=== PATIENT | female | born 1930 | race Caucasian/White ===

== ENCOUNTER 2019-03-30 18:11 | Inpatient (IN) | payer MEDICARE ==
[~2019-03-30] VITALS: Ht 152.4 cm; Wt 57.2 kg
[2019-03-30 18:42] LABS: BASOPHILS ABSOLUTE AUTO 0.08 K/mm3 (0.00-0.23); BASOPHILS PERCENT AUTO 1 % (0-2); EOSINOPHILS ABSOLUTE AUTO 0.57 K/mm3 (0.00-0.68); EOSINOPHILS PERCENT AUTO 7 % (0-6); Hematocrit 35.8 % (33.0-51.0); Hemoglobin 11.8 g/dL (11.5-16.0); IMMATURE GRAN ABSOLUTE AUTO 0.02 K/mm3 (0.00-0.10); IMMATURE GRAN PERCENT AUTO 0 % (0-1); LYMPHOCYTES ABSOLUTE AUTO 2.89 K/mm3 (0.84-5.20); LYMPHOCYTES PERCENT AUTO 35 % (21-46); MONOCYTES ABSOLUTE AUTO 0.63 K/mm3 (0.16-1.47); MONOCYTES PERCENT AUTO 8 % (4-13); Mean Corpuscular HGB 31.9 pg (26.0-34.0); Mean Corpuscular Volume 97 fL (80-100); Mean Platelet Volume 9.9 fL (9.1-12.4); NEUTROPHILS ABSOLUTE AUTO 4.12 K/mm3 (1.96-9.15); NEUTROPHILS PERCENT AUTO 50 % (41-73); Platelet Count 224 K/mm3 (150-400); RDW Coefficient Variation 12.7 % (11.7-14.2); RDW Standard Deviation 45.2 fL (35.1-46.3); White Blood Cell Count 8.31 K/mm3 (4.00-11.30)
[2019-03-30 19:02] LABS: Anion Gap 5 mmol/L (6-16); Blood Urea Nitrogen 20 mg/dL (8-24); Bun/Creatinine Ratio 21.8 (12.0-20.0); CO2, Blood 28 mmol/L (21-32); Calcium, Blood 8.4 mg/dL (8.5-10.1); Chloride, Blood 106 mmol/L (98-108); Creatinine, Blood 0.92 mg/dL (0.40-1.00); Glomerular Filtration Rate >60 (60-); Glucose, Blood 112 mg/dL (70-99); Potassium, Blood 3.7 mmol/L (3.5-5.5); Sodium, Blood 139 mmol/L (136-145)
[2019-03-30] MEDS ORDERED: Synthroid88 MCG PO (19:40)
--- NOTE | 2019-03-30 20:30 | NUR ---
ADMITTED TO SURGICAL FLOOR PT ARRIVED TO UNIT FROM ED VIA STRETCHER AT 2030 TODAY. PT A/O WITH VSS ON RA. DAUGHTER AT BEDSIDE AND ABLE TO ASSIST WITH HISTORY. REFUSES URINARY CATH AT THIS TIME DESPITE EDUCATION. DENIES NEED FOR PAIN MEDICATION AT THIS TIME. C/O NAUSEA. WILL MEDICATE PER EMAR. ORIENTATED TO ROOM AND DEMONSTRATED APPROPRIATE CALL LIGHT USE. CURRENTLY RESTING IN BED WITH CALL LIGHT IN HAND.
[2019-03-30] MEDS ORDERED: ASCO500 PO (22:07)
[2019-03-30] MEDS ORDERED: Vitamin D400 UNI1 PO (22:08)
[2019-03-30] MEDS ORDERED: [UNRECOGNIZED DRUG - OTHER] PO (22:10)
[2019-03-30] MEDS ORDERED: [UNRECOGNIZED DRUG - OTHER] PO (22:10)
--- NOTE | 2019-03-30 22:58 | NUR ---
DOCTOR NOTIFIED PT C/O MUSCLE CRAMPS/SPASMS. DR. BROWN NOTIFIED, NEW ORDERED FOR FLEXERIL OBTAINED.
[2019-03-31 05:56] LABS: Hematocrit 35.6 % (33.0-51.0); Hemoglobin 11.7 g/dL (11.5-16.0); Mean Corpuscular HGB 31.9 pg (26.0-34.0); Mean Corpuscular HGB Conc 32.9 g/dL (31.5-36.5); Mean Corpuscular Volume 97 fL (80-100); Mean Platelet Volume 10.5 fL (9.1-12.4); Platelet Count 228 K/mm3 (150-400); RDW Coefficient Variation 12.9 % (11.7-14.2); RDW Standard Deviation 46.2 fL (35.1-46.3); Red Blood Cell Count 3.67 M/mm3 (3.80-5.20); White Blood Cell Count 9.53 K/mm3 (4.00-11.30)
[2019-03-31 06:11] LABS: Alanine Aminotransfer (ALT/SGP 27 U/L (12-78); Albumin, Blood 3.4 g/dL (3.4-5.0); Albumin/Globulin Ratio 0.9 (0.8-1.8); Alk Phos 58 U/L (50-136); Anion Gap 4 mmol/L (6-16); Aspartate Aminotrans (AST/SGOT 30 U/L (12-37); Bilirubin, Total 0.4 mg/dL (0.1-1.0); Blood Urea Nitrogen 19 mg/dL (8-24); Bun/Creatinine Ratio 24.9 (12.0-20.0); CO2, Blood 28 mmol/L (21-32); Calcium, Blood 8.5 mg/dL (8.5-10.1); Chloride, Blood 107 mmol/L (98-108); Creatinine, Blood 0.76 mg/dL (0.40-1.00); Globulin, Blood 3.6 g/dL (2.2-4.0); Glomerular Filtration Rate >60 (60-); Glucose, Blood 125 mg/dL (70-99); Potassium, Blood 4.6 mmol/L (3.5-5.5); Sodium, Blood 139 mmol/L (136-145)
[2019-03-31 07:13] LABS: Source, Urine Catheter
[2019-03-31 07:22] LABS: Appearance, Urine Clear (Clear); Bilirubin, Urine Neg (Neg); Blood, Urine 1+ (Neg); Color, Urine Yellow (P-Yellow); Glucose Qualitative, Urine Neg (Neg); Ketones, Urine 2+ (Neg); Leukocyte Esterase, Urine Neg (Neg); Nitrite, Urine Neg (Neg); Protein, Urine Neg (Neg); Urobilinogen, Urine NORM (Normal)
[2019-03-31 07:32] LABS: Bacteria Rare /hpf; Red Blood Cells, Urine 0-2 /hpf (0-2); Squamous Epithelial Cells Few /hpf (Few); White Blood Cells, Urine 0-2 /hpf (0-5)
--- NOTE | 2019-03-31 07:38 | NUR ---
SHIFT SUMMARY PT ADMITTED FOR LEFT HIP FX DURING SHIFT. REPORTS PAIN AT TOLERABLE LEVEL, REPOSITIONED AND MEDICATED PER EMAR PRN. HAS BEEN NPO SINCE MIDNIGHT. FISHER PLACED R/T URINARY RETENTION, PATENT AND DRAINING YELLOW URINE. PLAN FOR SURGERY TODAY. PT CURRENTLY RESTING IN BED WITH CALL LIGHT IN HAND. REPORT GIVEN TO ONCOMING RN.
[2019-03-31 10:42] LABS: International Normalized Ratio 0.96; Prothrombin Time Results 10.2 Sec (9.7-11.5)
--- NOTE | 2019-03-31 11:30 | NUR ---
03/31/19 1130 [place] PATIENT ARRIVED TO OR WITH FISHER CATH IN PLACE
--- NOTE | 2019-03-31 13:01 | NUR ---
PT ARRIVED TO THE ROOM AT APPROXIMATELY 1255. PT ALERT AND ORIENTED. VSS, BP LOW NORMAL. FAMILY AT BEDSIDE FOR SUPPORT. WILL CONTINUE TO MONITOR.
--- NOTE | 2019-03-31 15:07 | NUR ---
BLEEDING DISTAL DRESSING WAS FOUND TO BE SATURATED WITH BLOOD WHEN THERAPY ATTEMPTED TO GET HER OOB. DRESSING WAS REMOVED, SLOW OOZING OBSERVED FROM INCISION SITE AT THAT TIME. PRESSURE APPLIED TO WOUND FOR APPROXIMATELY 10 MINUTES, OOZING APPEARS TO HAVE STOPPED. NEW AQUACEL DRESSING APPLIED. AWAITING CALL BACK FROM DR. BOYKIN.
--- NOTE | 2019-03-31 16:18 | NUR ---
DEBBIE WRAP APPLIED AROUND L THIGH IN ORDER TO APPLY PRESSURE TO REDUCE BLEEDING.
--- NOTE | 2019-03-31 16:31 | NUR ---
DR. MORALES NOTIFIED OF LOW BP OF 81/44. PT IS ASYMPTOMATIC AT THIS TIME. WILL RE-CHECK BP IN APPROXIMATELY [address] MORALES REQUEST. WILL CONTINUE TO MONITOR MENTATION.
--- NOTE | 2019-03-31 17:29 | NUR ---
BP HAS IMPROVED TO 101/49. PT REMAINS ASYMPTOMATIC. WILL CONTINUE TO MONITOR. IF BP CONTINUES TO DECREASE OR PT BECOMES SYMPTOMATIC DR. MORALES WILL BE NOTIFIED.
--- NOTE | 2019-03-31 18:44 | NUR ---
SHIFT SUMMARY PAIN HAS BEEN MANAGED WITH PO PAIN MEDICATION POST-OP. BP LOW POST-OP, FLUIDS STARTED PER DR. MORALES. BP IS IMPROVING; PT HAS BEEN ASYMPTOMATIC. FAMILY AT BEDSIDE FOR SUPPORT. WILL CONTINUE TO MONITOR.
--- NOTE | 2019-04-01 01:21 | NUR ---
PT WITH HYPOTENSION, MAP 61-67 FISHER OUT 200 ML SO FAR MED JEANNETTE IN COLOR.PT WAS NOTED HYPOTENSIVE POSTOP WITH IV FLUIDS CURRENTLY RUNNING AT 75 ML/HR.NO FURTHER BLEED AT SURG SITE. DEBBIE WRAP D/I TO L THIGH. PT ALERT AND HAS TAKEN 240 ML PO. SEE FLOW RECORDS FOR VS.I CALLED DR PEREZ AND RECEIVED ORDERS TO PUSH CBC UP TO 3 AM FROM 5 AM NOTIFIED LAB. ALSO, TO RUN REST OF CURRENT IV BAG IN @200 ML, THEN HANG ADDITIONAL LITER @ 200 ML/HR.PT IS SLEEPING AT THIS TIME.ADVISED DAUGHTER OF ORDERS OBTAINED. IV RATE CHANGED TO 200 ML/HR.
[2019-04-01 03:02] LABS: BASOPHILS ABSOLUTE AUTO 0.01 K/mm3 (0.00-0.23); BASOPHILS PERCENT AUTO 0 % (0-2); EOSINOPHILS PERCENT AUTO 0 % (0-6); Hemoglobin 7.5 g/dL (11.5-16.0); IMMATURE GRAN ABSOLUTE AUTO 0.03 K/mm3 (0.00-0.10); IMMATURE GRAN PERCENT AUTO 0 % (0-1); LYMPHOCYTES ABSOLUTE AUTO 1.77 K/mm3 (0.84-5.20); LYMPHOCYTES PERCENT AUTO 16 % (21-46); MONOCYTES ABSOLUTE AUTO 1.02 K/mm3 (0.16-1.47); MONOCYTES PERCENT AUTO 9 % (4-13); Mean Corpuscular HGB 31.9 pg (26.0-34.0); Mean Corpuscular HGB Conc 32.6 g/dL (31.5-36.5); Mean Corpuscular Volume 98 fL (80-100); Mean Platelet Volume 10.2 fL (9.1-12.4); NEUTROPHILS ABSOLUTE AUTO 8.23 K/mm3 (1.96-9.15); NEUTROPHILS PERCENT AUTO 74 % (41-73); Platelet Count 161 K/mm3 (150-400); RDW Coefficient Variation 13.1 % (11.7-14.2); RDW Standard Deviation 46.5 fL (35.1-46.3); Red Blood Cell Count 2.35 M/mm3 (3.80-5.20); White Blood Cell Count 11.06 K/mm3 (4.00-11.30)
--- NOTE | 2019-04-01 04:20 | NUR ---
NOTED PTS FOLLOW UP H/H.BP STABLE. NOT TACHY. ADDITIONAL 100 ML OUT PER FISHER WHICH IS NOW YELLOW IN COLOR. PT WITH NO OBVIOUS ACTIVE BLEED. PT ALERT AND ABLE TO ASSIST FOR REPOSITIONING IN BED. DENIES ANY DIZZYNESS OR PAIN. I CALLED DR Aguirre AND RECEIVED ORDERS.PT TO HAVE TX AND HOLD 2 UNITS. REPEAT CBC AT 0600. NEXT IV BAG TR@150 ML/HR.
[2019-04-01 06:13] LABS: BASOPHILS ABSOLUTE AUTO 0.02 K/mm3 (0.00-0.23); BASOPHILS PERCENT AUTO 0 % (0-2); EOSINOPHILS ABSOLUTE AUTO 0.01 K/mm3 (0.00-0.68); EOSINOPHILS PERCENT AUTO 0 % (0-6); Hematocrit 21.9 % (33.0-51.0); Hemoglobin 7.1 g/dL (11.5-16.0); IMMATURE GRAN ABSOLUTE AUTO 0.05 K/mm3 (0.00-0.10); IMMATURE GRAN PERCENT AUTO 1 % (0-1); LYMPHOCYTES ABSOLUTE AUTO 1.74 K/mm3 (0.84-5.20); LYMPHOCYTES PERCENT AUTO 18 % (21-46); MONOCYTES ABSOLUTE AUTO 1.13 K/mm3 (0.16-1.47); MONOCYTES PERCENT AUTO 11 % (4-13); Mean Corpuscular HGB 31.7 pg (26.0-34.0); Mean Corpuscular HGB Conc 32.4 g/dL (31.5-36.5); Mean Corpuscular Volume 98 fL (80-100); Mean Platelet Volume 10.1 fL (9.1-12.4); NEUTROPHILS ABSOLUTE AUTO 6.94 K/mm3 (1.96-9.15); NEUTROPHILS PERCENT AUTO 70 % (41-73); Platelet Count 145 K/mm3 (150-400); RDW Coefficient Variation 13.2 % (11.7-14.2); RDW Standard Deviation 47.1 fL (35.1-46.3); Red Blood Cell Count 2.24 M/mm3 (3.80-5.20); White Blood Cell Count 9.89 K/mm3 (4.00-11.30)
--- NOTE | 2019-04-01 07:33 | NUR ---
SUMMARY PT FOLLOW UP 6 1M LAB SLIGHTLY LOWER. DAY RN AGREES TO NOTIFY HOSPITALIST. NO OTHER ACUTE CHANGES.
[2019-04-01 13:43] LABS: Hematocrit 25.3 % (33.0-51.0); Hemoglobin 8.4 g/dL (11.5-16.0)
--- NOTE | 2019-04-01 18:21 | NUR ---
SHIFT SUMMARY PT HAS HAD MINIMAL PAIN THIS SHIFT. PT TOLERATED 1 UNIT OF PRBC WELL. BP REMAINS LOW AFTER UNIT OF BLOOD, PT IS ASYMPTOMATIC. WILL PT IS PRODUCING URINE. PT WAS ABLE TO WORK WITH THERAPY; BP DID NOT DECREASE DURING THERAPY. WILL CONTINUE TO MONITOR UNTIL REPORT TO ONCOMING RN.
--- NOTE | 2019-04-02 00:32 | NUR ---
ASSUMED CARE OF PT. PT RESTING IN BED, RESP E/U, NO DISTRESS NOTED. WILL CONT TO MONITOR AND TREAT PER ORDERS.
[2019-04-02 04:53] LABS: BASOPHILS ABSOLUTE AUTO 0.03 K/mm3 (0.00-0.23); BASOPHILS PERCENT AUTO 0 % (0-2); EOSINOPHILS ABSOLUTE AUTO 0.25 K/mm3 (0.00-0.68); EOSINOPHILS PERCENT AUTO 3 % (0-6); Hematocrit 25.2 % (33.0-51.0); Hemoglobin 8.1 g/dL (11.5-16.0); IMMATURE GRAN ABSOLUTE AUTO 0.02 K/mm3 (0.00-0.10); IMMATURE GRAN PERCENT AUTO 0 % (0-1); LYMPHOCYTES ABSOLUTE AUTO 1.77 K/mm3 (0.84-5.20); LYMPHOCYTES PERCENT AUTO 23 % (21-46); MONOCYTES ABSOLUTE AUTO 1.01 K/mm3 (0.16-1.47); MONOCYTES PERCENT AUTO 13 % (4-13); Mean Corpuscular HGB 30.7 pg (26.0-34.0); Mean Corpuscular HGB Conc 32.1 g/dL (31.5-36.5); Mean Corpuscular Volume 96 fL (80-100); Mean Platelet Volume 10.3 fL (9.1-12.4); NEUTROPHILS ABSOLUTE AUTO 4.71 K/mm3 (1.96-9.15); NEUTROPHILS PERCENT AUTO 60 % (41-73); Platelet Count 155 K/mm3 (150-400); RDW Coefficient Variation 15.9 % (11.7-14.2); RDW Standard Deviation 55.1 fL (35.1-46.3); Red Blood Cell Count 2.64 M/mm3 (3.80-5.20); White Blood Cell Count 7.79 K/mm3 (4.00-11.30)
[2019-04-02 05:06] LABS: Albumin, Blood 2.4 g/dL (3.4-5.0); Anion Gap 6 mmol/L (6-16); Blood Urea Nitrogen 23 mg/dL (8-24); Bun/Creatinine Ratio 25.3 (12.0-20.0); CO2, Blood 25 mmol/L (21-32); Calcium, Blood 7.8 mg/dL (8.5-10.1); Chloride, Blood 113 mmol/L (98-108); Creatinine, Blood 0.91 mg/dL (0.40-1.00); Glomerular Filtration Rate >60 (60-); Glucose, Blood 89 mg/dL (70-99); Phosphorus, Blood 2.9 mg/dL (2.5-4.9); Potassium, Blood 4.4 mmol/L (3.5-5.5); Sodium, Blood 144 mmol/L (136-145)
--- NOTE | 2019-04-02 07:38 | NUR ---
POD 2 S/P LEFT HIP PINNING. PT VSS T/O NIGHT. DRESSING W/SMALL AMT SHADOWING. PT DENIED PAIN/N/T. FISHER CATH D/C THIS AM. PT ENC TO ASSIST W/REPOSITIONING AND ROM EXERCISES IN BED. CALL LIGHT IN REACH. REPORT GIVEN TO DAY RN.
--- NOTE | 2019-04-02 17:17 | NUR ---
SHIFT SUMMARY PT HAS DONE WELL TODAY BUT WAS FAN AGAINST TAKING TYLENOL WHICH LIMITIED HER ACTIVITY THIS AM. PT HAS TO BE REMINDED FREQ ABOUT HER TOE TOUCH LIMITATIONS. SUNSHINE CRESPOL. VOIDING EASILY, HAD SMALL BM.
--- NOTE | 2019-04-03 05:49 | NUR ---
SHIFT SUMMARY PATIENT BELEIVES THAT SHE SLEPT WELL LAST NIGHT. PATIENT DID ALLOW FOR 1 TYLENOL FOR PAIN GREATER THAN 7/10. SHE WAS ABLE TO GET OOB WITH ASSISTANCE, SHE IS UNDERSTANDING BETTER HOW TO USE TOE TOUCH, THOUGH NOT READY TO WALK WITHOUT ASSISTANCE. EDEMA IS STILL PRESENT IN THE LT HIP SURROUNDING INCISION. NO OTHER ACUTE CHANGES,
--- NOTE | 2019-04-03 12:40 | NUR ---
DISCHARGE: PT TO [facility] BY [facility]SPORT, WITH BELONGINGS AND DRESSINGS THAT ARE IN WITH BELONGINGS. PT IV OUT WNL. REPORT BEEN GIVEN TO CHANDANA AT [facility] PLATEN GRINDER ASSISTED WITH DISCHARGE INCLUDING TALKING WITH FAMILY. PT EATING AND DRINKING, VOIDING AND HAD BM. PT CONT TO REPORT NOT NEEDING ANY PAIN MEDICATION INCLUDING TYLENOL.
== END 2019-04-03 12:45 | disposition home health service (06) | DRG 481 ==
LOC: ER 18:11 → SURS 18:12
PROVIDERS: Emergency Medicine; Hospitalist; Internal Medicine; Orthopaedic Surgery; ADMIT Internal Medicine
PROC: 0QS706Z Reposition Left Upper Femur with Intramedullary Internal Fixation Device, Open Approach (ICD-10-PCS; principal; 2019-03-31 09:30)
PROC: 30233N1 Transfusion of Nonautologous Red Blood Cells into Peripheral Vein, Percutaneous Approach (ICD-10-PCS; 2019-04-01)
DX: S72.142A Displaced intertrochanteric fracture of left femur, initial encounter for closed fracture (principal); D62 Acute posthemorrhagic anemia; W19.XXXA Unspecified fall, initial encounter; Y93.K9 Activity, other involving animal care; Y92.009 Unspecified place in unspecified non-institutional (private) residence as the place of occurrence of the external cause; E03.9 Hypothyroidism, unspecified; I95.89 Other hypotension; E86.0 Dehydration; Z88.0 Allergy status to penicillin
CPT/HCPCS: 36415; 36430; 51702; 71045; 73502; 80048; 80053; 80069; 81001; 85014; 85018; 85025; 85027; 85610; 85730; 86850; 86900; 86901; 86923; 96374; 97110; 97116; 97162; 97166; 97530; 97535; 99284-25; A9270; A9270-GY; C1713; C1769; J1100; J1170; J1885; J2370; J2405; J2704; J3010; J7030; J7120; P9016